=== PATIENT | female | born 1985 | race African-American/Black ===

== ENCOUNTER 2020-06-17 20:24 | Emergency (ER) | payer OTHER ==
[2020-06-17 20:55] VITALS: BP 125/69; PULSE 81; TEMP 98.4; BMI 26.6
[2020-06-17 21:45] LABS: BASO % 0.3 % (0-2.0); EOS % 2.8 % (0-4.5); HEMATOCRIT 36.7 % (32.4-45.2); HEMOGLOBIN 12.1 GM/dL (10.7-15.3); LYMPH % 14.6 % (8-40); MCH 30.7 pg (25.7-33.7); MEAN PLT VOLUME 8.7 fl (7.5-11.1); MONO % 4.6 % (3.8-10.2); NEUT % 77.7 % (42.8-82.8); PLATELET COUNT 296 K/MM3 (134-434); RBC 3.95 M/mm3 (3.60-5.2); RDW 13.6 % (11.6-15.6); WHITE BLOOD COUNT 8.2 K/mm3 (4.0-10.0)
[2020-06-17 22:09] LABS: CHLORIDE 106 mmol/L (98-107); SODIUM 137 mmol/L (136-145)
[2020-06-17 22:10] LABS: CALCIUM 9.3 mg/dL (8.5-10.1)
[2020-06-17 22:11] LABS: ALBUMIN 3.8 g/dl (3.4-5.0); ANION GAP 5 MMOL/L (8-16); BLOOD UREA NITROGEN 12.4 mg/dL (7-18); CO2 27 mmol/L (21-32); GLUCOSE,RANDOM 94 mg/dL (74-106)
[2020-06-17 22:14] LABS: CREATININE 0.8 mg/dL (0.55-1.3); SGOT/AST 16 U/L (15-37); SGPT/ALT 19 U/L (13-61)
[2020-06-17] MEDS ORDERED: KETOROLAC TROMETHAMINE 30 MG/1 ML VIAL IVPUSH ONE (22:14)
[2020-06-17 22:16] LABS: BILIRUBIN,TOTAL 0.2 mg/dL (0.2-1); TOT PROT 8.1 g/dl (6.4-8.2)
[2020-06-17 22:17] LABS: ALK PHOS 67 U/L (45-117)
[2020-06-17] MEDS ORDERED: KETOROLAC TROMETHAMINE 30 MG/1 ML VIAL ONE (22:17)
== END 2020-06-17 23:46 | disposition home or self-care (01) ==
LOC: JER 20:24
PROC: 3E0333Z Introduction of Anti-inflammatory into Peripheral Vein, Percutaneous Approach (ICD-10-PCS; principal; 2020-06-17)
DX: M25.562 Pain in left knee (principal)
CPT/HCPCS: 36415; 73562-TC-LT-FY; 80053; 84703; 85025; 86140; 93971-TC; 99285-25

== ENCOUNTER 2023-11-20 14:51 | Day surgery (SDC) | payer OTHER ==
[2023-11-20 14:54] VITALS: BMI 28.3
[2023-11-20 16:02] LABS: EPI CELLS 23 /uL (0-25.1); HCG,QUALITATIVE URINE Negative; HYALINE CASTS 1 /uL (0-3.1); URINE APPEARANCE CLEAR; URINE BACTERIA 143 /uL (0-1359); URINE BILIRUBIN NEGATIVE (NEGATIVE); URINE COLOR YELLOW; URINE GLUCOSE (UA) NEGATIVE (NEGATIVE); URINE KETONE NEGATIVE (NEGATIVE); URINE LEUK ESTERASE 1+ (NEGATIVE); URINE NITRITE NEGATIVE (NEGATIVE); URINE PROTEIN TRACE (NEGATIVE); URINE RBC 7 /uL (0-23.9); URINE WBC 15 /uL (0-25.8)
[2023-11-20] MEDS ORDERED: ACETAMINOPHEN 500 MG TABLET (FP) ONE (16:35)
[2023-11-20] MEDS: ACETAMINOPHEN 500 MG TABLET (FP) PO ONE (16:38)
[2023-11-20 17:12] LABS: BASO % 0.6 % (0-2.0); HEMATOCRIT 37.8 % (32.4-45.2); HEMOGLOBIN 12.9 GM/dL (10.7-15.3); LYMPH % 16.8 % (8-40); MCH 30.1 pg (25.7-33.7); MCHC 34.1 g/dl (32.0-36.0); MEAN CELL VOLUME 88.5 fl (80-96); MEAN PLT VOLUME 8.9 fl (7.5-11.1); MONO % 5.9 % (3.8-10.2); NEUT % 74.7 % (42.8-82.8); PLATELET COUNT 305 10^3/uL (134-434); RBC 4.27 M/mm3 (3.60-5.2); RDW 13.8 % (11.6-15.6); WHITE BLOOD COUNT 7.2 K/mm3 (4.0-10.0)
[2023-11-20 17:19] LABS: POTASSIUM 5.7 mmol/L (3.5-5.1)
[2023-11-20 17:21] LABS: CALCIUM 9.3 mg/dL (8.5-10.1)
[2023-11-20 17:22] LABS: ALBUMIN 3.8 g/dl (3.4-5.0); BLOOD UREA NITROGEN 9.6 mg/dL (7-18)
[2023-11-20 17:25] LABS: CREATININE 0.8 mg/dL (0.55-1.3)
[2023-11-20 17:26] LABS: BILIRUBIN,TOTAL 0.4 mg/dL (0.2-1)
[2023-11-20 17:27] LABS: TOT PROT 8.1 g/dl (6.4-8.2)
[2023-11-20] MEDS ORDERED: CEFTRIAXONE 2 GM/100 ML BAG IVPB ONE (19:44)
[2023-11-20] MEDS: CEFTRIAXONE 2,000 MG in DEXTROSE 5%-WATER - 50 ML IVPB ONE (19:48)
[2023-11-20] MEDS: LACTATED RINGERS SOLUTION 1,000 ML/1,000 ML INFUS.BAG IV SCH (21:10)
[2023-11-20 21:16] LABS: INR 1.06 (0.83-1.09)
[2023-11-20 21:26] LABS: POTASSIUM 3.9 mmol/L (3.5-5.1)
[2023-11-20 21:27] LABS: CALCIUM 9.3 mg/dL (8.5-10.1)
[2023-11-20 21:28] LABS: BLOOD UREA NITROGEN 10.1 mg/dL (7-18)
[2023-11-20 21:31] LABS: CREATININE 0.8 mg/dL (0.55-1.3)
[2023-11-20] MEDS ORDERED: ACETAMINOPHEN INJECTION 100 ML IVPB ONE (21:40)
[2023-11-20] MEDS: ACETAMINOPHEN 1000 MG/100 ML BAG IVPB PRN (21:52)
[2023-11-20] MEDS ORDERED: AMPICILLIN NA/SULBACTAM NA 3 GM/100 ML BAG IVPB ONE (22:31)
[2023-11-20] MEDS: AMPICILLIN NA/SULBACTAM NA 3 GM in SODIUM CHLORIDE 100 ML IVPB SCH (22:35)
[2023-11-21] MEDS ORDERED: BUPIVACAINE HCL/PF 0.25% (2.5MG/ML) 10 ML VIAL ONE (08:58)
[2023-11-21] MEDS ORDERED: ACETAMINOPHEN INJECTION 100 ML IVPB ONE (09:47)
[2023-11-21] MEDS ORDERED: MIDAZOLAM HCL 2 MG/2 ML SINGLE DOSE VIAL ONE (09:49)
[2023-11-21] MEDS ORDERED: ROCURONIUM BROMIDE 50 MG/5 ML SYRINGE ONE (09:54)
[2023-11-21] MEDS ORDERED: PROPOFOL 20 ML ONE (09:54)
[2023-11-21] MEDS ORDERED: SUCCINYLCHOLINE CHLORIDE 200 MG/10 ML SYRINGE ONE (09:54)
[2023-11-21] MEDS ORDERED: CEFTRIAXONE 2 GM in DEXTROSE 5%-WATER 100 ML IVPB SCH (10:00)
[2023-11-21] MEDS ORDERED: GLYCOPYRROLATE 0.2 MG/1 ML VIAL ONE (10:09)
[2023-11-21] MEDS ORDERED: ONDANSETRON 4 MG/2 ML VIAL IVPUSH PRN ×2 (10:14→12:40)
[2023-11-21] MEDS ORDERED: LACTATED RINGERS SOLUTION 1,000 ML IV SCH (10:15)
[2023-11-21] MEDS ORDERED: HYDROmorphone HCl 2 MG/ML VIAL ONE (10:18)
[2023-11-21] MEDS: BUPIVACAINE HCL/PF 0.25% (2.5MG/ML) 10 ML VIAL IJ ONE (10:22)
[2023-11-21] MEDS ORDERED: SUGAMMADEX SODIUM 200 MG/2 ML VIAL ONE (10:41)
[2023-11-21] MEDS ORDERED: oxyCODONE HCL 5 MG TABLET PO PRN (13:00)
[2023-11-21 13:55] VITALS: RESP 18
[2023-11-21] MEDS: ONDANSETRON 4 MG/2 ML VIAL IVPUSH PRN (14:20)
[2023-11-21] MEDS: ACETAMINOPHEN 1000 MG/100 ML BAG IVPB PRN (15:39)
[2023-11-21] MEDS: SENNOSIDES 8.8 MG/5 ML SYRUP PO SCH (21:37)
[2023-11-21] MEDS: ACETAMINOPHEN 325 MG TABLET (FP) PO PRN (22:30)
[2023-11-22 11:51] VITALS: BP 129/83; PULSE 86; TEMP 98.8
== END 2023-11-22 13:02 | disposition home or self-care (01) ==
LOC: JER 14:51 → UNDOADMIN 19:42 → JERBED 19:42 → J8W 11-21 02:29 → JASUSAT 11-21 08:55 → SUATTDRO 11-21 08:55 → J8W 11-21 09:07 → JASUSAT 11-22 13:02
PROVIDERS: ATTEND Nurse Practitioner Acute Care
DX: R10.31 Right lower quadrant pain (principal); K35.80 Unspecified acute appendicitis; R39.11 Hesitancy of micturition
CPT/HCPCS: 36415; 74177-TC; 80048; 80053; 81003; 84703; 85025; 85610; 87086; 88304-TC; 93005; 93010; 94760; 99285-25; J0131; Q9967